=== PATIENT | female | born 1995 | race Caucasian/White ===

== ENCOUNTER 2017-06-24 02:30 | Inpatient (IN) | payer OTHER ==
[~2017-06-24] VITALS: Ht 167.6 cm; Wt 57.0 kg
[2017-06-24 02:45] VITALS: BP 141/89; PULSE 88; RESP 16; TEMP 98.6; O2SAT 100
[2017-06-24 02:51] VITALS: BP 141/89; PULSE 88; RESP 16; TEMP 98.6; O2SAT 100
[2017-06-24] MEDS ORDERED: MELA5 PO (02:56)
[2017-06-24] MEDS ORDERED: BCP PO (02:56)
--- NOTE | 2017-06-24 02:59 | PD ---
HPI Chief Complaint: Psychiatric Symptoms Time Seen by Provider: 02:43 Travel History International Travel<30 days: No Contact w/Intl Traveler<30days: No Traveled to known affect area: No History of Present Illness HPI 22-year-old white female presents emergency department as a transfer from [facility]. The patient states that she was brought to the hospital by her significant other and family because she was having increasing suicidal thoughts. She states that she has been battling depression for some time. The patient advised her significant other that she had contemplated hanging herself. Patient cannot explain why she feels more depressed today. There is not any one precipitating event. She denies any toxic ingestion. She took 2 of her melatonin 5 mg each for sleep. She denies any recent illness. She denies any alcohol or tobacco. She does smoke marijuana. The patient had laboratory tests for medical clearance. Last menstrual period was approximately 2 weeks ago. Currently on control. The patient was placed under Castelan act by the ER physician. [facility] Past Medical History Narrative Medical Depression ,substance abuse Tetanus Vaccination: < 5 Years ?: Not Past Surgical History Surgical History: No Previous Surgery Social History Alcohol Use: No Tobacco Use: No Substance Use: Yes (Marijuana) Review of Systems General / Constitutional: No: Fever Eyes: No: Visual changes HENT: No: Headaches Cardiovascular: No: Chest Pain or Discomfort Respiratory: No: Shortness of Breath Gastrointestinal: No: Abdominal Pain Genitourinary: No: Dysuria Musculoskeletal: No: Pain Skin: No Rash Neurologic: No: Weakness Psychiatric: Positive: Depression, Suicidal Ideations, Mood Disorder, Substance Abuse, No: Anxiety, Disorder of Thought, Homicidal Ideation Endocrine: No: Polydipsia Hematologic/Lymphatic: No: Easy Bruising Physical Exam Narrative GENERAL: Well-nourished, well-developed patient. SKIN: Warm and dry. HEAD: Normocephalic and atraumatic. EYES: No scleral icterus. No injection or drainage. ENT: No nasal drainage noted. Mucous membranes pink. Airway patent. NECK: Supple, trachea midline. Moves head freely without obvious discomfort. CARDIOVASCULAR: Regular rate and rhythm without murmurs, gallops, or rubs. RESPIRATORY: Breath sounds equal bilaterally. No accessory muscle use. GASTROINTESTINAL: Abdomen soft, non-tender, nondistended. EXTREMITIES: No cyanosis or edema. BACK: Nontender without obvious deformity. No CVA tenderness. NEURO: Patient is alert and oriented. no sensorimotor deficits. Nonfocal. Normal speech. PSYCH: No delusions. No auditory or visual hallucinations. Data Data Last Documented VS Vital Signs Date Time Temp Pulse Resp B/P (MAP) Pulse Ox O2 Delivery O2 Flow Rate FiO2 06/24/17 02:45 98.6 88 16 141/89 (106) 100 Room Air MDM Medical Decision Making Medical Screen Exam Complete: Yes Emergency Medical Condition: Yes Medical Record Reviewed: Yes Interpretation(s) I reviewed the patient's laboratory tests including CBC, chemistry, hCG, drug screen. Testing was was negative except positive for marijuana. Differential Diagnosis MDM: High Differential diagnoses: Schizophrenia, schizoaffective disorder, bipolar, anxiety, depression, adjustment reaction, mood disorder NOS, ODD, depressive disorder NOS, dementia, dementia with agitation, psychosis NOS, substance induced mood disorder, DMDD, Asperger syndrome, infection,electrolyte abnormality, malingering. Narrative Course Mental health screening discussed with the patient. Psychiatric screen ordered. The patient been medically cleared. This is medical clearance for psychiatric admission Diagnosis Primary Impression: Medical clearance for psychiatric admission Condition: Stable Shay Aceves Jun 24, 2017 02:59
[2017-06-24] MEDS ORDERED: LORazepam 1 MG TAB PO ONE (05:15)
--- NOTE | 2017-06-24 15:14 | PD ---
History of Present Illness Chief Complaint: Psychiatric Symptoms Time Seen by Provider: 14:20 Travel History International Travel<30 Days: No Contact w/Intl Traveler<30days: No Known affected area: No Legal Status Legal Status: Involuntary Castelan Act Comment: Dr. Sam Ruiz, History of Present Illness: History of Present Illness HPI 22-year-old single, white female with history of major depression, no previous suicide attempt, history of self-injurious behavior mostly superficial cutting, presents emergency department as a transfer from [facility] under a certificate of professional initiating involuntary examination initiated at [facility] ED. The patient was brought to the hospital by her significant other after she reported that she hung a rope and was prepared to hang herself. She states that she stopped because she did not want to hurt her family. No recent stressors are reported. She has not taken psychiatric medication for at least a year and a half. Patient is seen and J pod. Alert, oriented, dressed in [facility] and maintaining basic hygiene. Speech is clear, logical. Fair amount of eye contact. Tearful. Mood is described as depressed and anxious with intermittent panic attack symptoms.. Reports difficulty sleeping without use of melatonin, decreased appetite, decreased level of energy, suicidal ideation. There is no psychosis, no delusions, no paranoia. She is a does not endorse any symptoms of suzanna or hypomania. The patient is expressing her desire to be discharged and states "now my family knows how I feel so they will be supportive ". The patient last took psychiatric medications approximately a year to a year and a half ago. She began treatment at age 16 and took Prozac for over 1 year. She stopped treatment because she felt better. She restarted treatment while a student at [employer]. She reports that in the past she has been treated with Lexapro, Prozac, Zoloft, Wellbutrin, Cymbalta, Pristiq. I spoke with her mother who arrived to the ED this afternoon. The mother states that the patient has an appointment with Dr. Arauz her previous psychiatrist on July 02. Mother is informed that due to her suicidal ideation and currently not on medication that it is our recommendation that she be admitted to inpatient psychiatry for safety, medication and stabilization. The patient and her mother are concerned because they live in [place]. I have advised them that the hospital in [place] stated there was no availability in the area. PFSH Past Medical History Hx Anticoagulant Therapy: No Depression: Yes Cardiovascular Problems: No Chemotherapy: No Cerebrovascular Accident: No Diabetes: No Respiratory: No Tetanus Vaccination: < 5 Years ?: Not LMP: 06/08/17 Past Surgical History Surgical History: No Previous Surgery Hysterectomy: No Psychiatric History Psychiatric History Hx Psychiatric Treatment: HAS BEEN IN TREATMENT IN THE PAST (AGE 16) WITH DR YOUNG IN [facility]. Also received treatment while a student at [employer]. Has not received psychiatric treatment in over 1 year. Past history of self-injurious behavior mainly superficial cutting of her wrists. History of Inpatient Treatment: No Guns or firearms in home: No Social History Single female . Graduate of [employer]. 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 Lives with her boyfriend. Hx Alcohol Use: No Hx Tobacco Use: No Hx Substance Use: Yes (Marijuana) Substance Use Type: Marijuana Hx of Substance Use Treatment: No Family Psychiatric History Mother with report a history of depression Allergies-Medications (Allergen,Severity, Reaction): Coded Allergies: sertraline (Verified Allergy, Unknown, 06/24/17) Reported Meds & Prescriptions Reported Meds & Active Scripts Active Reported Melatonin 5 Mg Tab 5 Mg PO HS [Bcp] 1 PO Review of Systems Psychiatric: COMPLAINS OF: Anxiety, Depression, Suicidal Ideation Except as stated in HPI: all other systems reviewed are Neg Mental Status Examination Appearance: Appropriate (Maintaining basic hygiene) Consciousness: Alert Orientation: x4 Motor Activity: Normal gait Speech: Unremarkable Language: Adequate Fund of Knowledge: Adequate Attention and Concentration: Adequate Memory: Unremarkable Mood: Sad, Other (Depressed) Affect: Other (Tearful) Thought Process & Associations: Intact, Logical, Goal directed Thought Content: Appropriate Hallucination Type: None Delusion Type: None Suicidal Ideation: No Suicidal Plan: Yes Suicidal Intention: No Homicidal Ideation: No Homicidal Plan: No Homicidal Intention: No Insight: Fair Judgment: Adequate MDM Medical Decision Making Medical Record Reviewed: Yes Assessment/Plan 22-year-old single, white female with history of major depression, no previous suicide attempt, history of self-injurious behavior mostly superficial cutting, presents emergency department as a transfer from [facility] under a certificate of professional initiating involuntary examination initiated at [facility] ED. The patient was brought to the hospital by her significant other after she reported that she hung a rope and was prepared to hang herself. She states that she stopped because she did not want to hurt her family. Once patient is in J pod she is requesting to be discharged as she feels that her family are now aware of how depressed she had been feeling. I am reluctant to release the Castelan act due to the patient with long history of depression, currently not medicated, with recent suicidal ideation with plan to hang herself. Patient will be admitted to inpatient psychiatry for safety, initiation of medication, and for and for stabilization of current symptoms. Orders Orders Psych Screen (06/24/17 02:58) Lorazepam (Ativan) (06/24/17 05:15) Diet Regular Basic (06/24/17 Breakfast) Results Vital Signs Date Time Temp Pulse Resp B/P (MAP) Pulse Ox O2 Delivery O2 Flow Rate FiO2 06/24/17 02:51 98.6 88 16 141/89 (106) 100 06/24/17 02:45 98.6 88 16 141/89 (106) 100 Room Air Diagnosis Primary Impression: Medical clearance for psychiatric admission Additional Impression: Depression Admitting Information Admitting Physician Requests: Admit Condition: Stable Problem Qualifiers Additional Impression: Depression Qualified Codes: F33.1 - Major depressive disorder, recurrent, moderate Glo Faustin Jun 24, 2017 15:14
[2017-06-24] MEDS ORDERED: ACETAMINOPHEN 325 MG TAB PO PRN (15:30)
[2017-06-24] MEDS ORDERED: MAGNESIUM HYDROXIDE SUSP 30 ML CUP PO PRN (15:30)
[2017-06-24] MEDS ORDERED: ALUMINUM/MAGNESIUM/SIMETH 30 ML CUP PO PRN (15:30)
[2017-06-24 17:11] VITALS: BP 134/83; PULSE 118; RESP 16; TEMP 98.7; O2SAT 96
[2017-06-24] MEDS: MELATONIN 5 MG TAB PO SCH (22:56)
[2017-06-25 05:33] VITALS: BP 118/66; PULSE 86; RESP 21; TEMP 98.3; O2SAT 99
[2017-06-25 09:50] LABS: BICARBONATE 22.2 MEQ/L (21.0-32.0); BLOOD UREA NITROGEN 10 MG/DL (7-18); CALCIUM 9.6 MG/DL (8.5-10.1); CHLORIDE 105 MEQ/L (98-107); CREATININE 0.83 MG/DL (0.50-1.00); GLOMERULAR FILTRATION RATE 86 ML/MIN (>89); GLUCOSE,RANDOM 121 MG/DL (74-106); SODIUM (NA) 138 MEQ/L (136-145)
[2017-06-25 09:52] LABS: CHOLESTEROL 129 MG/DL (120-200); TRIGLYCERIDES 102 MG/DL (42-150)
[2017-06-25 09:56] LABS: CHOLESTEROL/ HDL RATIO 2.27 RATIO; HDL CHOLESTEROL 56.8 MG/DL (40.0-60.0); LDL CHOLESTEROL 52 MG/DL (0-99)
[2017-06-25] MEDS ORDERED: hydrOXYzine HCL 50 MG TAB PO PRN (12:45)
--- NOTE | 2017-06-25 13:08 | HHI.HP ---
Provisional Diagnosis Admission Date Jun 24, 2017 at 15:21 [place] I. Major depressive disorder recurrent severe without psychosis, marijuana abuse Certification of Person's Competence To Provide Express and Informed Consent I have personally examined Rupali Szymanski , a person being served at [facility] on, Jun 25, 2017 12:52. Express and informed consent means consent voluntarily given in writing, by a competent person, after sufficient explanation and disclosure of the subject matter involved to enable the person to make a knowing and willful decision without any element of force, fraud, deceit, duress, or other form of constraint or coercion. This person is 18 years of age or older, is not now known to be incompetent to consent to treatment with a guardian advocate, and does not have a health care surrogate or proxy currently making medical treatment decisions. I have found this person to be one of the following: [] Competent to provide express and informed consent, as defined above, for voluntary admission to this facility and is competent to provide express and informed consent for treatment. He/she has the consistent capacity to make well reasoned, willful, and knowing decisions concerning his or her medical or mental health treatment. The person fully and consistently understands the purpose of the admission for examination/placement and is fully capable of personally exercising all rights assured [place] [] Incompetent to provide express and informed consent to voluntary admission, and this is incompetent to provide express and informed consent to treatment. The person must be transferred to involuntary status and a petition for a guardian advocate filed with the Circuit Court. [xxx] Refusing to provide express and informed consent to voluntary admission but is competent to provide express and informed consent for treatment. The person must be discharged or transferred to involuntary status. Form shall be completed within 24 hours of a person's arrival at the receiving facility and filed in the clinical record of each person: 1. Admitted on a voluntary basis 2. Permitted to provide express and informed consent to his/her own treatment 3. Allowed to transfer from involuntary to voluntary status 4. Prior to permitting a person to consent to his or her own treatment after having been previously found incompetent to consent to treatment. History of Present Illness Capacity: Lacks Capacity (Patient lacks capacity to sign for admission, patient has capacity to sign for medication) Psych Chief Complaint: Depression with suicide intent to hang self HPI Patient is a 22-year-old white female comes for under a Castelan act signed by Sam Ruiz D0 dated and 0 hrs. daily this document reviewed and agreed with stating suicidal ideation and plan to hang self. Patient was brought to [facility] medically screened and cleared at that facility urine toxicology positive for marijuana and alcohol level negative. At the present time patient sitting quietly in exam room nurse Kaur present throughout session. Patient is tearful and sad and somewhat emotional. She states a long history of being more depressed than happy. She notes increased sadness over the past few months though she cannot identify any specific precipitating event. She states she lives with her boyfriend of 5 years. They have been living together for about 6 or 7 months, she states it is a good loving relationship. However she also states over the past few months she has been smoking marijuana daily, before that it was occasional though frequent use. She denies alcohol or other drug use. She states she has been depressed mood, there is initial and mid insomnia, a.m. energy, there is marked decreased energy, there is decreased appetite, with anhedonia, and a decreased sex drive. She states decreased concentration and attention, increased social isolation. She finds herself avoiding crowds. She denies voices or visions with this. She states the only self-medicating has been the marijuana. She states the suicidal ideation has been gradually coming up over the past few weeks but is only in the past week or so she has been developing various plans leading up to her buying equipment to hang herself but stopping herself before she put the noose around her neck, calling her boyfriend who called her family leading to the Castelan act. Patient gives a history of past psychiatric contact as an outpatient be been tried on multiple antidepressants in the past. She states she had some good luck with Zoloft until she developed a rash. She does deny mood swings. She states she said her episodes when she felt she had a more normal level of energy and focus. She denies any other suicidal attempts. She denies any prior physical and/or sexual abuse. She states there is mental health history in her family of origin. It appears mother has called patient's prior psychiatrist today. She can see her on 07/02. At the present time patient meets criteria for involuntary psychiatric hospitalization L the first opinion request second opinion. We did discuss medications. We will start the patient on Remeron 15 mg at at bedtime and Seroquel 25 mg at 8 AM and 4 PM. We will offer Benadryl at at bedtime also. We will also allow Atarax. We will refrain from benzodiazepines and opiates. Hope this to be a fairly short stay and she can be returned to her boyfriend and her family patient denies any significant medical or surgical history. Denies head trauma or loss of consciousness, states she has been on control pills for a number of years. Review of Systems Constitutional: DENIES: Diaphoretic episodes, Fatigue, Fever, Weight gain, Weight loss, Chills, Dizziness, Change in appetite, Night Sweats Endocrine: DENIES: Abnorml menstrual pattern, Heat/cold intolerance, Polydipsia , Polyuria, Polyphagia Eyes: DENIES: Blurred vision, Diplopia, Eye inflammation, Eye pain, Vision loss , Photosensitivity, Double Vision Ears, nose, mouth, throat: DENIES: Tinnitus, Hearing loss, Vertigo, Nasal discharge, Oral lesions, Throat pain, Hoarseness, Ear Pain, Running Nose, Epistaxis, Sinus Pain, Toothache, Odynophagia Respiratory: DENIES: Apneas, Cough, Snoring, Wheezing, Hemoptysis, Sputum production, Shortness of breath Cardiovascular: DENIES: Chest pain, Palpitations, Syncope, Dyspnea on Exertion , PND, Lower Extremity Edema, Orthopnea, Claudication Gastrointestinal: DENIES: Abdominal pain, Black stools, Bloody stools, Constipation, Diarrhea, Nausea, Vomiting, Difficulty Swallowing, Anorexia Genitourinary: DENIES: Abnormal vaginal bleeding, Dysmenorrhea, Dyspareunia, Sexual dysfunction, Urinary frequency, Urinary incontinence, Urgency, Hematuria , Dysuria, Nocturia, Vaginal discharge Musculoskeletal: DENIES: Joint pain, Muscle aches, Stiffness, Joint Swelling, Back pain, Neck pain Integumentary: DENIES: Abnormal pigmentation, Pruritus, Rash, Nail changes, Breast masses, Breast skin changes, Nipple discharge Hematologic/lymphatic: DENIES: Bruising, Lymphadenopathy Immunologic/allergic: DENIES: Eczema, Urticaria Neurologic: DENIES: Abnormal gait, Headache, Localized weakness, Paresthesias, Seizures, Speech Problems, Tremor, Poor Balance Psychiatric: COMPLAINS OF: Anxiety, Depression, Suicidal Ideation Past Psych History Psychological trauma history Patient denies any physical or sexual abuse Violence risk - others (6 mos) Low Violence risk - self (6 mos) Patient had plan to hang self Substance Abuse History Drugs/Alcohol past 12 months Patient verbal able access healthcare has supportive family and boyfriend Past Family Social History Coded Allergies: sertraline (Verified Allergy, Unknown, 06/24/17) Reported Medications Melatonin (Melatonin) 5 Mg Tab, 5 MG PO HS for Provide Good Sleep, TAB 0 Refills 06/24/17 [Bcp] No Conflict Check, 1 PO 06/24/17 Current Medications Medications (Trade) Dose Ordered Sig/Abdoulaye Route Start Time Stop Time Status Last Admin (Tylenol) 650 mg Q4H PRN PO 06/24/17 15:30 (Milk Of Magnesia Liq) 30 ml DAILY PRN PO 06/24/17 15:30 (Mag-Al Plus Susp Liq) 30 ml Q6H PRN PO 06/24/17 15:30 (Melatonin) 5 mg HS PO 06/24/17 21:00 06/24/17 22:56 (Remeron) 15 mg HS PO 06/25/17 21:00 UNV (SEROquel) 25 mg BID@0800,1600 PO 06/25/17 16:00 UNV (Benadryl) 50 mg HS PRN PO 06/25/17 12:45 UNV (Atarax) 50 mg Q6H PRN PO 06/25/17 12:45 UNV Family Psych History Strong history mental health issues and family Social History Patient living with boyfriend of 5 years have been cohabitating for about 6 months, she also has a pet hamster Patient's Strengths (min. 2) Patient verbal able access healthcare Physical Exam Patient medically cleared [facility]. At the present time patient sitting quietly in exam room she is in no acute distress. She is in no respiratory distress. No complaints of abdominal pain. Patient moving all 4 extremities without difficulty. No abnormal motor movements noted Vital Signs Vital Signs Date Time Temp Pulse Resp B/P (MAP) Pulse Ox O2 Delivery O2 Flow Rate FiO2 06/25/17 05:33 98.3 86 21 118/66 (83) 99 06/24/17 02:45 Room Air I/O 06/25/17 06/25/17 06/26/17 08:00 16:00 00:00 Intake Total 240 ml Balance 240 ml Lab Results Test 06/25/17 08:15 Blood Urea Nitrogen 10 MG/DL Creatinine 0.83 MG/DL Random Glucose 121 MG/DL Calcium Level 9.6 MG/DL Sodium Level 138 MEQ/L Potassium Level 3.5 MEQ/L Chloride Level 105 MEQ/L Carbon Dioxide Level 22.2 MEQ/L Anion Gap 11 MEQ/L Estimat Glomerular Filtration Rate 86 ML/MIN Triglycerides Level 102 MG/DL Cholesterol Level 129 MG/DL LDL Cholesterol 52 MG/DL HDL Cholesterol 56.8 MG/DL Cholesterol/HDL Ratio 2.27 RATIO Mental Status Examination Appearance: Appropriate (Maintaining basic hygiene) Consciousness: Alert Orientation: x4 Motor Activity: Normal gait Speech: Unremarkable Language: Adequate Fund of Knowledge: Adequate Attention and Concentration: Adequate Memory: Unremarkable Mood: Sad, Anxious, Other (Depressed) Affect: Other (Increased range and intensity) Thought Process & Associations: Intact, Logical, Goal directed Thought Content: Appropriate Hallucination Type: None Delusion Type: None Suicidal Ideation: Yes (Patient denies at present time was somewhat vague about taking suicide pill) Suicidal Plan: Yes (Patient denies at the present time) Suicidal Intention: No Homicidal Ideation: No Homicidal Plan: No Homicidal Intention: No Insight: Fair Judgment: Adequate Assessment & Plan Problem List: (1) Major depressive disorder, recurrent severe without psychotic features ICD Codes: F33.2 - Major depressive disorder, recurrent severe without psychotic features (2) Marijuana abuse ICD Codes: F12.10 - Cannabis abuse, uncomplicated Assessment & Plan Estimated LOS: 3-5 days patient continues depressed with vague suicidal ideation , patient does meet criteria for further hospitalization assessment under the Castelan act L the first opinion request second opinion. I feel she is capacity signed for medication. We will start on medications as mentioned above hopefully plan to return her to her family and boyfriend Discharge Planning Probable return home to family and boyfriend Request HC Surrog/Guard Advoc?: No Ramiro Stoner MD Jun 25, 2017 13:08
[2017-06-25] MEDS ORDERED: QUEtiapine FUMARATE 25 MG TAB PO SCH (16:00)
[2017-06-25] MEDS: QUEtiapine FUMARATE 25 MG TAB PO SCH (16:22)
[2017-06-25 16:33] LABS: HEMOGLOBIN A1C 4.9 % (4.3-6.0)
[2017-06-25 17:06] VITALS: BP 128/77; PULSE 100; RESP 18; TEMP 97.8; O2SAT 99
[2017-06-25] MEDS: MELATONIN 5 MG TAB PO SCH (20:43)
[2017-06-25] MEDS: MIRTAZAPINE 15 MG TAB PO SCH (20:43)
[2017-06-25] MEDS: diphenhydrAMINE HCL 50 MG CAP PO PRN (20:43)
[2017-06-26 05:43] VITALS: BP 104/60; PULSE 92; RESP 16; TEMP 98.1; O2SAT 97
[2017-06-26] MEDS: QUEtiapine FUMARATE 25 MG TAB PO SCH ×2 (08:31→15:34)
--- NOTE | 2017-06-26 10:22 | PD.PSY.CON ---
Provisional Diagnosis Admission Date Jun 24, 2017 at 15:21 [place]. Major depressive disorder recurrent severe without psychosis, marijuana abuse History of Present Illness Service Psychiatry Consult Requested By Dr. Stoner Reason for Consult Suicidal ideation/second Primary Care Physician Unknown HPI Patient is a 22-year-old white female comes for under a Castelan act signed by Sam Ruiz D0 dated and 2130 hrs. daily this document reviewed and agreed with stating suicidal ideation and plan to hang self. Patient was brought to [facility] medically screened and cleared at that facility urine toxicology positive for marijuana and alcohol level negative. At the present time patient sitting quietly in exam room nurse Kaur present throughout session. Patient is tearful and sad and somewhat emotional. She states a long history of being more depressed than happy. She notes increased sadness over the past few months though she cannot identify any specific precipitating event. She states she lives with her boyfriend of 5 years. They have been living together for about 6 or 7 months, she states it is a good loving relationship. However she also states over the past few months she has been smoking marijuana daily, before that it was occasional though frequent use. She denies alcohol or other drug use. She states she has been depressed mood, there is initial and mid insomnia, a.m. energy, there is marked decreased energy, there is decreased appetite, with anhedonia, and a decreased sex drive. She states decreased concentration and attention, increased social isolation. She finds herself avoiding crowds. She denies voices or visions with this. She states the only self-medicating has been the marijuana. She states the suicidal ideation has been gradually coming up over the past few weeks but is only in the past week or so she has been developing various plans leading up to her buying equipment to hang herself but stopping herself before she put the noose around her neck, calling her boyfriend who called her family leading to the Castelan act. Patient gives a history of past psychiatric contact as an outpatient be been tried on multiple antidepressants in the past. She states she had some good luck with Zoloft until she developed a rash. She does deny mood swings. She states she said her episodes when she felt she had a more normal level of energy and focus. She denies any other suicidal attempts. She denies any prior physical and/or sexual abuse. She states there is mental health history in her family of origin. It appears mother has called patient's prior psychiatrist today. She can see her on 07/02. At the present time patient meets criteria for involuntary psychiatric hospitalization L the first opinion request second opinion. We did discuss medications. We will start the patient on Remeron 15 mg at at bedtime and Seroquel 25 mg at 8 AM and 4 PM. We will offer Benadryl at at bedtime also. We will also allow Atarax. We will refrain from benzodiazepines and opiates. Hope this to be a fairly short stay and she can be returned to her boyfriend and her family patient denies any significant medical or surgical history. Denies head trauma or loss of consciousness, states she has been on control pills for a number of years. The patient is a 22-year-old woman, domiciled with boyfriend in [place], [facility], with psychiatric history of major depressive disorder, anxiety, no previous psychiatric hospitalizations, no previous suicide attempts , no significant medical history,who comes for under a Castelan act signed by Sam Ruiz D0 dated and 2129 hrs. daily this document reviewed and agreed with stating suicidal ideation and plan to hang self. Patient was brought to [facility] medically screened and cleared at that facility urine toxicology positive for marijuana and alcohol level negative. Patient was consulted to me for second opinion. On psychiatric evaluation today patient is calm, cooperative, pleasant. Patient reports that she has been very depressed, with poor motivation to do things, with increased emotional pain, no enjoying her life, and thinking often in hanging herself. She reports that she gets into this periods every time or often. At this moment she feels much better, feels like she is getting the help that she needs. She denies suicidal and was ideation, she denies visual and auditory hallucinations. Review of Systems Constitutional: DENIES: Diaphoretic episodes, Fatigue, Fever, Weight gain, Weight loss, Chills, Dizziness, Change in appetite, Night Sweats Endocrine: DENIES: Abnorml menstrual pattern, Heat/cold intolerance, Polydipsia , Polyuria, Polyphagia Eyes: DENIES: Blurred vision, Diplopia, Eye inflammation, Eye pain, Vision loss , Photosensitivity, Double Vision Ears, nose, mouth, throat: DENIES: Tinnitus, Hearing loss, Vertigo, Nasal discharge, Oral lesions, Throat pain, Hoarseness, Ear Pain, Running Nose, Epistaxis, Sinus Pain, Toothache, Odynophagia Respiratory: DENIES: Apneas, Cough, Snoring, Wheezing, Hemoptysis, Sputum production, Shortness of breath Cardiovascular: DENIES: Chest pain, Palpitations, Syncope, Dyspnea on Exertion , PND, Lower Extremity Edema, Orthopnea, Claudication Gastrointestinal: DENIES: Abdominal pain, Black stools, Bloody stools, Constipation, Diarrhea, Nausea, Vomiting, Difficulty Swallowing, Anorexia Genitourinary: DENIES: Abnormal vaginal bleeding, Dysmenorrhea, Dyspareunia, Sexual dysfunction, Urinary frequency, Urinary incontinence, Urgency, Hematuria , Dysuria, Nocturia, Vaginal discharge Musculoskeletal: DENIES: Joint pain, Muscle aches, Stiffness, Joint Swelling, Back pain, Neck pain Integumentary: DENIES: Abnormal pigmentation, Pruritus, Rash, Nail changes, Breast masses, Breast skin changes, Nipple discharge Hematologic/lymphatic: DENIES: Bruising, Lymphadenopathy Immunologic/allergic: DENIES: Eczema, Urticaria Neurologic: DENIES: Abnormal gait, Headache, Localized weakness, Paresthesias, Seizures, Speech Problems, Tremor, Poor Balance Psychiatric: DENIES: Anxiety, Confusion, Mood changes, Depression, Hallucinations, Agitation, Suicidal Ideation, Homicidal Ideation, Delusions Past Family Social History Coded Allergies: sertraline (Verified Allergy, Unknown, 06/24/17) Reported Medications Melatonin (Melatonin) 5 Mg Tab, 5 MG PO HS for Provide Good Sleep, TAB 0 Refills 06/24/17 [Bcp] No Conflict Check, 1 PO 06/24/17 Current Medications Medications (Trade) Dose Ordered Sig/Abdoulaye Route Start Time Stop Time Status Last Admin (Tylenol) 650 mg Q4H PRN PO 06/24/17 15:30 (Milk Of Magnesia Liq) 30 ml DAILY PRN PO 06/24/17 15:30 (Mag-Al Plus Susp Liq) 30 ml Q6H PRN PO 06/24/17 15:30 (Melatonin) 5 mg HS PO 06/24/17 21:00 06/25/17 20:43 (Remeron) 15 mg HS PO 06/25/17 21:00 06/25/17 20:43 (Benadryl) 50 mg HS PRN PO 06/25/17 21:00 06/25/17 20:43 (Atarax) 50 mg Q6H PRN PO 06/25/17 12:45 (SEROquel) 25 mg BID@0800,1600 PO 06/25/17 16:00 06/26/17 08:31 Social History Patient was born and raised in [place], she lives with her boyfriend in [place], she works in the [employer], she has a bachelor degree Patient's Strengths (min. 2) Patient verbal able access healthcare Physical Exam Vital Signs Vital Signs Date Time Temp Pulse Resp B/P (MAP) Pulse Ox O2 Delivery O2 Flow Rate FiO2 06/26/17 05:43 98.1 92 16 104/60 (75) 97 06/24/17 02:45 Room Air Mental Status Examination Appearance: Appropriate (Maintaining basic hygiene) Consciousness: Alert Orientation: x4 Motor Activity: Normal gait Speech: Unremarkable Language: Adequate Fund of Knowledge: Adequate Attention and Concentration: Adequate Memory: Unremarkable Mood: Sad, Anxious, Other (Depressed) Affect: Other (Increased range and intensity) Thought Process & Associations: Intact, Logical, Goal directed Thought Content: Appropriate Hallucination Type: None Delusion Type: None Suicidal Ideation: Yes (Patient denies at present time was somewhat vague about taking suicide pill) Suicidal Plan: Yes (Patient denies at the present time) Suicidal Intention: No Homicidal Ideation: No Homicidal Plan: No Homicidal Intention: No Insight: Fair Judgment: Adequate Assessment & Plan Problem List: (1) Major depressive disorder, recurrent severe without psychotic features ICD Codes: F33.2 - Major depressive disorder, recurrent severe without psychotic features Assessment & Plan: I have seen and examined this patient, review the documentation, I agree and concur with Dr. Stoner's assessment and plan. (2) Marijuana abuse ICD Codes: F12.10 - Cannabis abuse, uncomplicated Assessment & Plan Estimated LOS: days Request HC Surrog/Guard Advoc?: No Sebastian Dominguez MD Jun 26, 2017 10:22
--- NOTE | 2017-06-26 13:19 | HHI.PYPN ---
Subjective Chief Complaint: Depression with suicide intent to hang self Remarks Patient seen in her room the floor staff, chart reviewed, patient complaint medications, patient discussed with nurse. Patient states she slept well last night, also stated she had visits from her mother her boyfriend and another family friend. Those visits all seem to have went well also. Patient states no problems with the medication at this time. Today she denies suicidality or homicidality voices or visions. She was slightly vague about her compliance regarding total abstinence from drugs including marijuana. For now continue treatment consider discharge 1-2 days. Patient does have a psychiatric appointment on 07/02 Review of Systems Except as stated in HPI: all other systems reviewed are Neg Mental Status Examination Appearance: Appropriate (Maintaining basic hygiene) Consciousness: Alert Orientation: x4 Motor Activity: Normal gait Speech: Unremarkable Language: Adequate Fund of Knowledge: Adequate Attention and Concentration: Adequate Memory: Unremarkable Mood: Sad, Anxious, Other (Depressed) Affect: Other (Increased range and intensity) Thought Process & Associations: Intact, Logical, Goal directed Thought Content: Appropriate Hallucination Type: None Delusion Type: None Suicidal Ideation: No Suicidal Plan: No Suicidal Intention: No Homicidal Ideation: No Homicidal Plan: No Homicidal Intention: No Insight: Fair Judgment: Adequate Results Vitals/IOs Vital Signs Date Time Temp Pulse Resp B/P (MAP) Pulse Ox O2 Delivery O2 Flow Rate FiO2 06/26/17 05:43 98.1 92 16 104/60 (75) 97 06/24/17 02:45 Room Air Assessment & Plan Problem List: (1) Major depressive disorder, recurrent severe without psychotic features ICD Codes: F33.2 - Major depressive disorder, recurrent severe without psychotic features (2) Marijuana abuse ICD Codes: F12.10 - Cannabis abuse, uncomplicated Assessment & Plan Estimated LOS: days patient is improving, she denies suicidality today and denies voices today. She says she slept well. . had good conversations with mother, boyfriend, and family friend. The patient continues to improve consider discharge within 24-48 hours. Patient does have appointment with psychiatrist on 07/02 Justification for Cont. Inpt. At this time patient may decompensate if not placed on appropriate level of care Discharge Planning See above probable discharge to family within 24-48 hours Request HC Surrog/Guard Advoc?: No Ramiro Stoner MD Jun 26, 2017 13:19
[2017-06-26 18:00] VITALS: BP 133/83; PULSE 81; RESP 17; TEMP 97.7; O2SAT 96
[2017-06-26] MEDS: MELATONIN 5 MG TAB PO SCH (22:11)
[2017-06-26] MEDS: MIRTAZAPINE 15 MG TAB PO SCH (22:11)
[2017-06-26] MEDS: diphenhydrAMINE HCL 50 MG CAP PO PRN (22:11)
[2017-06-27 05:01] VITALS: BP 123/66; PULSE 92; RESP 16; TEMP 98.2; O2SAT 99
[2017-06-27] MEDS: QUEtiapine FUMARATE 25 MG TAB PO SCH (09:17)
--- NOTE | 2017-06-27 13:28 | HHI.DS ---
Psychiatry Discharge Summary Inpatient Psychiatric care?: Yes Advance Directive: No Reason Not Provided: Due to Patient Condition Mental Health AdvanceDirective: No Health Care Proxy: No Admission Admission Date Jun 24, 2017 at 15:21 Admission Diagnosis: (1) Major depressive disorder, recurrent severe without psychotic features ICD Code: F33.2 - Major depressive disorder, recurrent severe without psychotic features Brief History Patient is a 22-year-old white female comes for under a Castel[place] act signed by Sam Ruiz D0 dated and 2130 hrs. daily this document reviewed and agreed with stating suicidal ideation and plan to hang self. Patient was brought to [facility] medically screened and cleared at that facility urine toxicology positive for marijuana and alcohol level negative. At the present time patient sitting quietly in exam room nurse Kaur present throughout session. Patient is tearful and sad and somewhat emotional. She states a long history of being more depressed than happy. She notes increased sadness over the past few months though she cannot identify any specific precipitating event. She states she lives with her boyfriend of 5 years. They have been living together for about 6 or 7 months, she states it is a good loving relationship. However she also states over the past few months she has been smoking marijuana daily, before that it was occasional though frequent use. She denies alcohol or other drug use. She states she has been depressed mood, there is initial and mid insomnia, a.m. energy, there is marked decreased energy, there is decreased appetite, with anhedonia, and a decreased sex drive. She states decreased concentration and attention, increased social isolation. She finds herself avoiding crowds. She denies voices or visions with this. She states the only self-medicating has been the marijuana. She states the suicidal ideation has been gradually coming up over the past few weeks but is only in the past week or so she has been developing various plans leading up to her buying equipment to hang herself but stopping herself before she put the noose around her neck, calling her boyfriend who called her family leading to the Castelan act. Patient gives a history of past psychiatric contact as an outpatient be been tried on multiple antidepressants in the past. She states she had some good luck with Zoloft until she developed a rash. She does deny mood swings. She states she said her episodes when she felt she had a more normal level of energy and focus. She denies any other suicidal attempts. She denies any prior physical and/or sexual abuse. She states there is mental health history in her family of origin. It appears mother has called patient's prior psychiatrist today. She can see her on 07/02. At the present time patient meets criteria for involuntary psychiatric hospitalization L the first opinion request second opinion. We did discuss medications. We will start the patient on Remeron 15 mg at at bedtime and Seroquel 25 mg at 8 AM and 4 PM. We will offer Benadryl at at bedtime also. We will also allow Atarax. We will refrain from benzodiazepines and opiates. Hope this to be a fairly short stay and she can be returned to her boyfriend and her family patient denies any significant medical or surgical history. Denies head trauma or loss of consciousness, states she has been on control pills for a number of years. The patient is a 22-year-old woman, domiciled with boyfriend in [place], [facility], with psychiatric history of major depressive disorder, anxiety, no previous psychiatric hospitalizations, no previous suicide attempts , no significant medical history,who comes for under a Castelan act signed by Sam Ruiz D0 dated and 0 hrs. daily this document reviewed and agreed with stating suicidal ideation and plan to hang self. Patient was brought to [facility] medically screened and cleared at that facility urine toxicology positive for marijuana and alcohol level negative. Patient was consulted to me for second opinion. On psychiatric evaluation today patient is calm, cooperative, pleasant. Patient reports that she has been very depressed, with poor motivation to do things, with increased emotional pain, no enjoying her life, and thinking often in hanging herself. She reports that she gets into this periods every time or often. At this moment she feels much better, feels like she is getting the help that she needs. She denies suicidal and was ideation, she denies visual and auditory hallucinations. Tobacco Use In Past 30 Days: No Tobacco Past 30 Days Alcohol Use: Never Hospital Course Patient was admitted to a locked psychiatric unit. Safety precautions were in place throughout the visit. Patient was seen daily by a psychiatric provider and followed by counselor. Patient was placed on Seroquel to manage symptoms. At follow-up today patient was evaluated in the exam room. After reviewing her chart and discussing case with staff. Patient is awake, alert and oriented 4. Her speech is clear, logical, and organized. Her mood is good her affect is euthymic. There is no indication of internal stimulation. I can elicit no delusional material. There is no apparent thought blocking. Patient denies suicidal and homicidal ideation, she denies AVH. Patient reports that she "feels much better". States that she has been sleeping and eating well. She advises that she already has an appointment set up with a psychiatrist that she used to see for next week. She states that she will be moving back in with her boyfriend however, her parents live close. Her counselor, Marie, reports that the mother has been staying locally at a hotel throughout the visit and remains extremely involved with her daughter. I believe at this time that patient has reached maximum benefit for this admission. She no longer meets Castelan act or inpatient admission criteria and does not pose a danger to herself or others. She will be discharged with a prescription for her medications and instructions to return to this facility should her condition worsen at any time. Results Blood Pressure 123 / 66 Vital Signs Date Time Temp Pulse Resp B/P (MAP) Pulse Ox O2 Delivery O2 Flow Rate FiO2 06/27/17 05:01 98.2 92 16 123/66 (85) 99 06/24/17 02:45 Room Air Laboratory Tests Test 06/25/17 08:15 Random Glucose 121 MG/DL (74-106) Estimat Glomerular Filtration Rate 86 ML/MIN (>89) Laboratory Results Test 06/25/17 08:15 Cholesterol Level 129 MG/DL (120-200) HDL Cholesterol 56.8 MG/DL (40.0-60.0) Hemoglobin A1c 4.9 % (4.3-6.0) LDL Cholesterol 52 MG/DL (0-99) Triglycerides Level 102 MG/DL (42-150) Summary of Procedures None Pending results at discharge: No Medications # of Antipsychotic meds at D/C: 1 Appropriate >1 Antipsych meds?: 1 Approp Antipsych med options 1 - Minimum of three failed multiple trials of monotherapy. 2 - Documented plan to taper to monotherapy due to previous use of multiple meds OR cross-taper in progress at D/C. 3 - Documentation of augmentation of Clozapine. 4 - Justification other than those listed in allowable values 1-3, document here : Discharge Discharge Date: Jun 27, 2017 Discharge Diagnosis: (1) Major depressive disorder, recurrent severe without psychotic features Diagnosis: Principal ICD Code: F33.2 - Major depressive disorder, recurrent severe without psychotic features Pt Condition on Discharge: Stable Discharge Disposition: Discharge Home Discharge Instructions Diet Instructions: As Tolerated, No Restrictions Activities you can perform: Regular-No Restrictions Discharge Time > 30 minutes Mental Status Examination Appearance: Appropriate (Maintaining basic hygiene) Consciousness: Alert Orientation: x4 Motor Activity: Normal gait Speech: Unremarkable Language: Adequate Fund of Knowledge: Adequate Attention and Concentration: Adequate Memory: Unremarkable Mood: Sad, Anxious, Other (Depressed) Affect: Other (Increased range and intensity) Thought Process & Associations: Intact, Logical, Goal directed Thought Content: Appropriate Hallucination Type: None Delusion Type: None Suicidal Ideation: No Suicidal Plan: No Suicidal Intention: No Homicidal Ideation: No Homicidal Plan: No Homicidal Intention: No Insight: Fair Judgment: Adequate Discharge/Advance Care Plan Health Problems: (1) Major depressive disorder, recurrent severe without psychotic features (2) Marijuana abuse Goals to promote your health * To prevent worsening of your condition and complications * To maintain your health at the optimal level Directions to meet your goals Take your medications as prescribed Follow your dietary instruction Follow activity as directed Keep your appointments as scheduled Take your immunizations and boosters as scheduled If your symptoms worsen call your PCP, if no PCP go to Urgent Care Center or Emergency Room For 30/09 questions related to your inpatient stay or results of tests pending at discharge, please contact Dr. Cayla Jackson at Smoking is Dangerous to Your Health. Avoid second hand smoking Cayla Jackson Jun 27, 2017 13:28
[2017-06-27] MEDS ORDERED: SERO25TA PO (13:33)
[2017-06-27] MEDS ORDERED: MIRTA15 PO (13:33)
== END 2017-06-27 14:40 | disposition home or self-care (01) | DRG 885 ==
LOC: NEPD 02:30 → NEDA 15:21 → H260 16:25
PROVIDERS: ADMIT Psychiatry & Neurology Psychiatry; ATTEND Psychiatry & Neurology Psychiatry
DX: F33.2 Major depressive disorder, recurrent severe without psychotic features (principal); R45.851 Suicidal ideations; F12.10 Cannabis abuse, uncomplicated; F41.0 Panic disorder [episodic paroxysmal anxiety]; G47.00 Insomnia, unspecified; Z81.8 Family history of other mental and behavioral disorders; Z91.14 Patient's other noncompliance with medication regimen; Z91.5 Personal history of self-harm
CPT/HCPCS: 80048; 80061; 83036; 99285; Q0163